=== PATIENT | male | born 1950 | race African-American/Black ===

== ENCOUNTER 2016-07-04 06:59 | Inpatient (IN) | payer MEDICARE, MEDICAID ==
[~2016-07-04] VITALS: Ht 170.2 cm; Wt 81.7 kg
[~2016-07-04 06:59] MED LIST: AMLO2.5T45 PO; ASPI-1035 PO; ATOR10TA69 PO; FURO20TA4 PO; INSU3INS6 SUBCUT; LOSA25TA12 PO; METO25TA6 PO; NORT25CA PO
[2016-07-04 07:47] LABS: BASOPHILS % 0.6 % (0.0-2.0); EOSINOPHILS % 0.7 % (0.0-5.0); HEMATOCRIT. 32.4 % (42.0-52.0); HEMOGLOBIN. 10.7 g/dL (14.0-18.0); LYMPHOCYTES % 15.8 % (20.0-50.0); MEAN CORPUSCULAR HEMOGLOBIN 27.5 pg (28.0-32.0); MEAN CORPUSCULAR VOLUME 83.2 fL (80.0-94.0); MEAN PLATELET VOLUME 8.9 fl (7.4-10.4); MONOCYTES % 6.3 % (2.0-8.0); NEUTROPHILS % 76.6 % (40.0-76.0); PLATELET 153 x1000/uL (130-400); RED CELL DISTRIBUTION WIDTH 14.6 % (11.6-14.6); WHITE BLOOD COUNT 7.4 x1000/uL (4.5-11.0)
[2016-07-04 07:56] LABS: INR 1.2; PARTIAL THROMBOPLASTIN TIME 28.9 sec (24.0-34.0)
[2016-07-04 07:58] LABS: ALBUMIN 3.7 g/dL (3.4-5.0); ANION GAP 14; CALCIUM 9.1 mg/dL (8.5-10.1); CARBON DIOXIDE 24 mEq/L (21-32); CHLORIDE 107 mEq/L (98-107); INDEX HEMOLYSI 2 (1-3); INDEX ICTERIC 1 (1-4); INDEX LIPEMIC 1 (1-3); LIPASE 98 IU/L (73-393); UREA NITROGEN BLOOD 35 mg/dL (7-21)
[2016-07-04 07:59] LABS: ALANINE AMINOTRANSFERASE 17 IU/L (13-61); eGFR > 60 mL/min (>60)
[2016-07-04] MEDS ORDERED: FUROSEMIDE 20MG/2ML VIAL IVP ONE (08:00)
[2016-07-04] MEDS ORDERED: MORPHINE SULFATE 4 MG/ML CPJ (NOT FOR IM USE) IV ONE (08:00)
[2016-07-04 08:04] LABS: TROPONIN I 0.11 ng/mL (0.00-0.04)
[2016-07-04] MEDS ORDERED: ACETAMINOPHEN 325MG TABLET PO PRN (13:00)
[2016-07-04] MEDS ORDERED: HYDROCODONE/ACETAMINOPHEN 5/325MG TABLET PO PRN (13:00)
[2016-07-04] MEDS ORDERED: ONDANSETRON HCL 4MG/2ML VIAL IV PRN (13:00)
[2016-07-04] MEDS ORDERED: DIPHENHYDRAMINE 50MG/ML VIAL IV PRN (13:00)
[2016-07-04] MEDS ORDERED: DEXTROSE 50% WATER 50ML SYRINGE IV PRN (13:00)
[2016-07-04] MEDS ORDERED: CLONIDINE 0.1MG TABLET PO PRN (13:00)
[2016-07-04 15:05] VITALS: BP 136/111
[2016-07-04 16:00] VITALS: BP 134/90
[2016-07-04] MEDS: BLOOD SUGAR DIAGNOSTIC STRIP TEST SCH ×2 (18:08→21:47)
[2016-07-04] MEDS: METOPROLOL TARTRATE 25MG TABLET PO SCH (18:08)
[2016-07-04] MEDS: FUROSEMIDE 40MG/4ML VIAL IV SCH (18:08)
[2016-07-04] MEDS: ENOXAPARIN 40MG/0.4ML SYR SUBCUT SCH (18:08)
[2016-07-04] MEDS: INSULIN LISPRO 100 UNITS/ML SUBCUT SCH ×2 (18:09→21:00)
[2016-07-04] MEDS: MORPHINE SULFATE 2 MG/ML CPJ (NOT FOR IM USE) IV PRN (18:09)
[2016-07-04 20:00] VITALS: BP 122/88
[2016-07-04 21:10] LABS: CLARITY URINE CLEAR (CLEAR); COLOR URINE YELLOW (YELLOW); GLUCOSE URINE NEGATIVE (NEGATIVE); KETONES URINE NEGATIVE (NEGATIVE); LEUKOCYTE ESTERASE URINE NEGATIVE (NEGATIVE); NITRITE URINE NEGATIVE (NEGATIVE); OCCULT BLOOD URINE 1+ (NEGATIVE); PROTEIN URINE 2+ (NEGATIVE); SPECIFIC GRAVITY URINE 1.015 (1.005-1.030); UROBILINOGEN URINE 0.2 E.U./dL (0.2-1.0)
[2016-07-04 21:13] LABS: BACTERIA URINE NONE SEEN; CALCIUM PHOSPHATE CRYSTALS UR NONE SEEN /lpf; SQUAMOUS EPITHELIAL CELL URINE NONE SEEN /lpf (RARE/1+); WAXY CASTS URINE NONE SEEN /lpf; WBC URINE NONE SEEN /hpf (0-2); YEAST URINE NONE SEEN
[2016-07-05] VITALS: BP 124/86
[2016-07-05 04:00] VITALS: BP 118/79
[2016-07-05 05:59] LABS: CHLORIDE 107 mEq/L (98-107); INDEX HEMOLYSI 1 (1-3); INDEX ICTERIC 1 (1-4); INDEX LIPEMIC 1 (1-3)
[2016-07-05 06:08] LABS: ALANINE AMINOTRANSFERASE 14 IU/L (13-61); ALBUMIN 3.2 g/dL (3.4-5.0); ANION GAP 15; CALCIUM 8.8 mg/dL (8.5-10.1); CARBON DIOXIDE 21 mEq/L (21-32); HDL CHOLESTEROL 60 mg/dL (40-59); LDL CHOLESTEROL 60 mg/dL (5-100); TRIGLYCERIDE 65 mg/dL (0-150); UREA NITROGEN BLOOD 40 mg/dL (7-21); eGFR > 60 mL/min (>60)
[2016-07-05] MEDS: INSULIN LISPRO 100 UNITS/ML SUBCUT SCH ×4 (06:12→22:05)
[2016-07-05] MEDS: BLOOD SUGAR DIAGNOSTIC STRIP TEST SCH ×4 (06:12→21:54)
[2016-07-05 06:14] LABS: BASOPHILS % 0.7 % (0.0-2.0); EOSINOPHILS % 1.4 % (0.0-5.0); HEMATOCRIT. 31.5 % (42.0-52.0); HEMOGLOBIN. 9.9 g/dL (14.0-18.0); LYMPHOCYTES % 29.7 % (20.0-50.0); MEAN CORPUSCULAR HEMOGLOBIN 26.5 pg (28.0-32.0); MEAN CORPUSCULAR HGB CONC 31.4 g/dL (31.0-37.0); MEAN CORPUSCULAR VOLUME 84.5 fL (80.0-94.0); MEAN PLATELET VOLUME 9.1 fl (7.4-10.4); MONOCYTES % 8.6 % (2.0-8.0); NEUTROPHILS % 59.6 % (40.0-76.0); PLATELET 132 x1000/uL (130-400); RED BLOOD CELL COUNT 3.73 mill/uL (4.7-6.1); WHITE BLOOD COUNT 5.4 x1000/uL (4.5-11.0)
[2016-07-05] MEDS: FUROSEMIDE 40MG/4ML VIAL IV SCH ×2 (06:34→17:55)
[2016-07-05 08:08] VITALS: BP 140/90
[2016-07-05] MEDS: METOPROLOL TARTRATE 25MG TABLET PO SCH ×2 (10:24→17:55)
[2016-07-05] MEDS: NORTRIPTYLINE HCL 25MG CAPSULE PO SCH (10:25)
[2016-07-05] MEDS: AMLODIPINE 2.5MG TABLET PO SCH (10:25)
[2016-07-05] MEDS: LOSARTAN POTASSIUM 25 MG TABLET PO SCH (10:26)
[2016-07-05] MEDS: ASPIRIN 81MG EC TABLET PO SCH (10:26)
[2016-07-05] MEDS: MORPHINE SULFATE 2 MG/ML CPJ (NOT FOR IM USE) IV PRN (10:27)
[2016-07-05] MEDS: ATORVASTATIN CALCIUM 10MG TABLET PO SCH (10:30)
[2016-07-05] MEDS: IPRATROPIUM/ALBUTEROL 0.5-3(2.5)MG/3ML NEB INH PRN ×3 (11:45→21:52)
[2016-07-05 12:00] VITALS: BP 134/92
[2016-07-05 16:00] VITALS: BP 130/90
[2016-07-05] MEDS: ENOXAPARIN 40MG/0.4ML SYR SUBCUT SCH (17:56)
[2016-07-05 20:00] VITALS: BP 129/87
[2016-07-05] MEDS: SILVER SULFADIAZINE 1% CREAM 25GM TOP SCH (21:55)
[2016-07-06] VITALS: BP 118/74
[2016-07-06] MEDS: MORPHINE SULFATE 2 MG/ML CPJ (NOT FOR IM USE) IV PRN (03:17)
[2016-07-06 04:00] VITALS: BP 127/90
[2016-07-06] MEDS: BLOOD SUGAR DIAGNOSTIC STRIP TEST SCH ×4 (06:24→21:32)
[2016-07-06] MEDS: INSULIN LISPRO 100 UNITS/ML SUBCUT SCH ×4 (06:24→21:00)
[2016-07-06] MEDS: FUROSEMIDE 40MG/4ML VIAL IV SCH ×2 (06:36→16:27)
[2016-07-06 08:00] VITALS: BP 125/82
[2016-07-06] MEDS: IPRATROPIUM/ALBUTEROL 0.5-3(2.5)MG/3ML NEB INH PRN ×2 (08:49→21:05)
[2016-07-06] MEDS: LOSARTAN POTASSIUM 25 MG TABLET PO SCH (09:00)
[2016-07-06] MEDS: NORTRIPTYLINE HCL 25MG CAPSULE PO SCH (09:03)
[2016-07-06] MEDS: ASPIRIN 81MG EC TABLET PO SCH (09:03)
[2016-07-06] MEDS: SILVER SULFADIAZINE 1% CREAM 25GM TOP SCH ×2 (09:04→21:32)
[2016-07-06] MEDS: METOPROLOL TARTRATE 25MG TABLET PO SCH ×2 (09:04→16:28)
[2016-07-06] MEDS: AMLODIPINE 2.5MG TABLET PO SCH (09:04)
[2016-07-06] MEDS: ATORVASTATIN CALCIUM 10MG TABLET PO SCH (09:10)
[2016-07-06 12:00] VITALS: BP 125/86
[2016-07-06 16:00] VITALS: BP 126/85
[2016-07-06] MEDS: ENOXAPARIN 40MG/0.4ML SYR SUBCUT SCH (16:27)
[2016-07-06 20:00] VITALS: BP_SYST 125; BP_SYST 155; BP_DIAS 85; BP_DIAS 89
[2016-07-07] VITALS: BP 119/78
[2016-07-07] MEDS: IPRATROPIUM/ALBUTEROL 0.5-3(2.5)MG/3ML NEB INH PRN ×3 (00:59→09:15)
[2016-07-07 04:00] VITALS: BP 138/88
[2016-07-07 05:20] LABS: BASOPHILS % 0.5 % (0.0-2.0); EOSINOPHILS % 1.4 % (0.0-5.0); HEMATOCRIT. 31.2 % (42.0-52.0); HEMOGLOBIN. 10.1 g/dL (14.0-18.0); LYMPHOCYTES % 18.4 % (20.0-50.0); MEAN CORPUSCULAR HEMOGLOBIN 26.7 pg (28.0-32.0); MEAN CORPUSCULAR HGB CONC 32.3 g/dL (31.0-37.0); MEAN CORPUSCULAR VOLUME 82.7 fL (80.0-94.0); MEAN PLATELET VOLUME 8.9 fl (7.4-10.4); MONOCYTES % 8.2 % (2.0-8.0); NEUTROPHILS % 71.5 % (40.0-76.0); PLATELET 135 x1000/uL (130-400); RED BLOOD CELL COUNT 3.77 mill/uL (4.7-6.1); RED CELL DISTRIBUTION WIDTH 14.7 % (11.6-14.6); WHITE BLOOD COUNT 5.6 x1000/uL (4.5-11.0)
[2016-07-07] MEDS: BLOOD SUGAR DIAGNOSTIC STRIP TEST SCH ×4 (05:53→20:32)
[2016-07-07 06:19] LABS: ALANINE AMINOTRANSFERASE 11 IU/L (13-61); ANION GAP 13; CALCIUM 8.8 mg/dL (8.5-10.1); CARBON DIOXIDE 26 mEq/L (21-32); CHLORIDE 104 mEq/L (98-107); INDEX HEMOLYSI 1 (1-3); INDEX ICTERIC 1 (1-4); INDEX LIPEMIC 1 (1-3); UREA NITROGEN BLOOD 37 mg/dL (7-21); eGFR > 60 mL/min (>60)
[2016-07-07] MEDS: FUROSEMIDE 40MG/4ML VIAL IV SCH ×2 (07:44→17:59)
[2016-07-07] MEDS: INSULIN LISPRO 100 UNITS/ML SUBCUT SCH ×4 (07:44→20:43)
[2016-07-07 07:45] VITALS: BP 117/67
[2016-07-07] MEDS: LOSARTAN POTASSIUM 25 MG TABLET PO SCH (09:53)
[2016-07-07] MEDS: AMLODIPINE 2.5MG TABLET PO SCH (09:54)
[2016-07-07] MEDS: SILVER SULFADIAZINE 1% CREAM 25GM TOP SCH ×2 (09:54→20:42)
[2016-07-07] MEDS: NORTRIPTYLINE HCL 25MG CAPSULE PO SCH (09:54)
[2016-07-07] MEDS: METOPROLOL TARTRATE 25MG TABLET PO SCH ×2 (09:54→17:59)
[2016-07-07] MEDS: ASPIRIN 81MG EC TABLET PO SCH (09:54)
[2016-07-07] MEDS: ATORVASTATIN CALCIUM 10MG TABLET PO SCH (09:54)
[2016-07-07 12:00] VITALS: BP 136/89
[2016-07-07 16:00] VITALS: BP 142/91
[2016-07-07] MEDS: ENOXAPARIN 40MG/0.4ML SYR SUBCUT SCH (17:59)
[2016-07-07 20:00] VITALS: BP 126/87
[2016-07-08] VITALS: BP 128/83
[2016-07-08 04:00] VITALS: BP 126/81
[2016-07-08 06:04] LABS: BASOPHILS % 0.6 % (0.0-2.0); HEMATOCRIT. 32.3 % (42.0-52.0); HEMOGLOBIN. 10.5 g/dL (14.0-18.0); LYMPHOCYTES % 24.6 % (20.0-50.0); MEAN CORPUSCULAR HEMOGLOBIN 26.9 pg (28.0-32.0); MEAN CORPUSCULAR HGB CONC 32.4 g/dL (31.0-37.0); MEAN PLATELET VOLUME 8.7 fl (7.4-10.4); MONOCYTES % 9.5 % (2.0-8.0); NEUTROPHILS % 63.3 % (40.0-76.0); PLATELET 147 x1000/uL (130-400); RED BLOOD CELL COUNT 3.89 mill/uL (4.7-6.1); RED CELL DISTRIBUTION WIDTH 14.7 % (11.6-14.6); WHITE BLOOD COUNT 5.7 x1000/uL (4.5-11.0)
[2016-07-08] MEDS: FUROSEMIDE 40MG/4ML VIAL IV SCH ×2 (06:18→16:50)
[2016-07-08] MEDS: MORPHINE SULFATE 2 MG/ML CPJ (NOT FOR IM USE) IV PRN (06:24)
[2016-07-08 06:47] LABS: CHLORIDE 100 mEq/L (98-107); INDEX HEMOLYSI 1 (1-3); INDEX ICTERIC 1 (1-4); INDEX LIPEMIC 1 (1-3)
[2016-07-08 06:56] LABS: ALANINE AMINOTRANSFERASE 13 IU/L (13-61); ALBUMIN 3.2 g/dL (3.4-5.0); ANION GAP 13; CARBON DIOXIDE 29 mEq/L (21-32); UREA NITROGEN BLOOD 26 mg/dL (7-21); eGFR > 60 mL/min (>60)
[2016-07-08] MEDS: BLOOD SUGAR DIAGNOSTIC STRIP TEST SCH ×4 (07:34→21:00)
[2016-07-08] MEDS: INSULIN LISPRO 100 UNITS/ML SUBCUT SCH ×4 (07:34→21:00)
[2016-07-08 08:00] VITALS: BP 137/92
[2016-07-08] MEDS ORDERED: LIDOCAINE HCL/PF 1% 2ML VIAL ONE (09:00)
[2016-07-08] MEDS: ASPIRIN 81MG EC TABLET PO SCH (09:28)
[2016-07-08] MEDS: LOSARTAN POTASSIUM 25 MG TABLET PO SCH (09:28)
[2016-07-08] MEDS: ATORVASTATIN CALCIUM 10MG TABLET PO SCH (09:28)
[2016-07-08] MEDS: AMLODIPINE 2.5MG TABLET PO SCH (09:28)
[2016-07-08] MEDS: METOPROLOL TARTRATE 25MG TABLET PO SCH ×2 (09:28→16:50)
[2016-07-08] MEDS: NORTRIPTYLINE HCL 25MG CAPSULE PO SCH (09:28)
[2016-07-08] MEDS: SILVER SULFADIAZINE 1% CREAM 25GM TOP SCH ×2 (09:29→21:56)
[2016-07-08 09:45] LABS: BG BASE EXCESS 0.2 mmol/L (-2.0-2.0); BG CARBOXYHEMOGLOBIN 0.5 % (0.5-1.5); BG DEOXYHEMOGLOBIN 4.8 % (0.0-5.0); BG FRACTION INSPIRED OXYGEN 21; BG HCO3 ACT 23.5 mmol/L (22.0-26.0); BG METHEMOGLOBIN 0.2 % (0.0-1.5); BG OXYGEN SATURATION 95.2 % (92.0-98.5); BG OXYHEMOGLOBIN 94.5 % (94.0-97.0); BG PO2 74.1 mmHg (75.0-100.0); BG SAMPLE SITE RIGHT BRACHIAL; BG TOTAL HEMOGLOBIN 10.7 g/dL (12.0-18.0); BG VENT MODE ROOM AIR
[2016-07-08 12:00] VITALS: BP 125/82
[2016-07-08] MEDS: IPRATROPIUM/ALBUTEROL 0.5-3(2.5)MG/3ML NEB INH PRN ×2 (13:12→20:43)
[2016-07-08] MEDS: LEVOFLOXACIN 500MG PREMIX 100 ML IV SCH (13:35)
[2016-07-08] MEDS: ENOXAPARIN 40MG/0.4ML SYR SUBCUT SCH (15:07)
[2016-07-08 16:00] VITALS: BP 137/92
[2016-07-08 20:00] VITALS: BP 124/80
[2016-07-09] VITALS: BP 121/71
[2016-07-09 04:00] VITALS: BP 127/82
[2016-07-09] MEDS: FUROSEMIDE 40MG/4ML VIAL IV SCH (07:11)
[2016-07-09] MEDS: BLOOD SUGAR DIAGNOSTIC STRIP TEST SCH ×2 (07:32→12:12)
[2016-07-09] MEDS: INSULIN LISPRO 100 UNITS/ML SUBCUT SCH ×2 (07:32→13:09)
[2016-07-09 08:00] VITALS: BP 134/95
[2016-07-09] MEDS: ATORVASTATIN CALCIUM 10MG TABLET PO SCH (09:02)
[2016-07-09] MEDS: SILVER SULFADIAZINE 1% CREAM 25GM TOP SCH (09:03)
[2016-07-09] MEDS: NORTRIPTYLINE HCL 25MG CAPSULE PO SCH (09:03)
[2016-07-09] MEDS: AMLODIPINE 2.5MG TABLET PO SCH (09:03)
[2016-07-09] MEDS: LOSARTAN POTASSIUM 25 MG TABLET PO SCH (09:03)
[2016-07-09] MEDS: ASPIRIN 81MG EC TABLET PO SCH (09:03)
[2016-07-09] MEDS: METOPROLOL TARTRATE 25MG TABLET PO SCH (09:03)
[2016-07-09] MEDS: MORPHINE SULFATE 2 MG/ML CPJ (NOT FOR IM USE) IV PRN (10:15)
[2016-07-09 12:00] VITALS: BP 122/85
[2016-07-09] MEDS: LEVOFLOXACIN 500MG PREMIX 100 ML IV SCH (13:57)
[2016-07-09 14:49] VITALS: BP 122/85
[2016-07-10] MEDS ORDERED: LEVOFLOXACIN 500MG TABLET PO SCH (11:00)
== END 2016-07-09 15:50 | disposition home or self-care (01) | DRG 291 ==
LOC: ER 07:18 → 7WST 11:48
PROVIDERS: ADMIT Internal Medicine; ATTEND Internal Medicine
PROC: 5A09457 Assistance with Respiratory Ventilation, 24-96 Consecutive Hours, Continuous Positive Airway Pressure (ICD-10-PCS; principal; 2016-07-06)
DX: I11.0 Hypertensive heart disease with heart failure (principal); J96.00 Acute respiratory failure, unspecified whether with hypoxia or hypercapnia; J18.9 Pneumonia, unspecified organism; J44.0 Chronic obstructive pulmonary disease with (acute) lower respiratory infection; I24.9 Acute ischemic heart disease, unspecified; I42.9 Cardiomyopathy, unspecified; D64.9 Anemia, unspecified; E78.5 Hyperlipidemia, unspecified; J44.9 Chronic obstructive pulmonary disease, unspecified; I50.43 Acute on chronic combined systolic (congestive) and diastolic (congestive) heart failure; E78.00 Pure hypercholesterolemia, unspecified; E11.9 Type 2 diabetes mellitus without complications; N28.9 Disorder of kidney and ureter, unspecified; Z95.810 Presence of automatic (implantable) cardiac defibrillator; Z79.82 Long term (current) use of aspirin; Z79.899 Other long term (current) drug therapy; Z79.4 Long term (current) use of insulin
CPT/HCPCS: 36415; 36600; 71010; 80053; 80061; 81001; 82375; 82805; 82962; 83036; 83690; 83880; 84484; 85025; 85610; 85730; 87040; 87086; 93005; 93306; 93970; 94640; 94660; 94664; 96374; 96375; 99285; J1650; J1815; J1940; J1956; J2270; J3490; J7050; J7620

== ENCOUNTER 2016-09-01 13:02 | Inpatient (IN) | payer MEDICARE, MEDICAID ==
[~2016-09-01] VITALS: Ht 190.5 cm; Wt 82.1 kg
[~2016-09-01 13:02] MED LIST changes: -ASPI-1035 PO; +ASPI-1159 PO
[2016-09-01 14:15] LABS: BASOPHILS % 0.9 % (0.0-2.0); EOSINOPHILS % 2.7 % (0.0-5.0); HEMATOCRIT. 27.2 % (42.0-52.0); LYMPHOCYTES % 26.6 % (20.0-50.0); MEAN CORPUSCULAR HEMOGLOBIN 26.9 pg (28.0-32.0); MEAN CORPUSCULAR VOLUME 81.7 fL (80.0-94.0); MEAN PLATELET VOLUME 8.3 fl (7.4-10.4); MONOCYTES % 6.2 % (2.0-8.0); NEUTROPHILS % 63.6 % (40.0-76.0); PLATELET 87 x1000/uL (130-400); RED BLOOD CELL COUNT 3.33 mill/uL (4.7-6.1); RED CELL DISTRIBUTION WIDTH 17.3 % (11.6-14.6)
[2016-09-01 14:22] LABS: INR 1.2; PROTHROMBIN TIME 12.4 sec
[2016-09-01 14:31] LABS: CARBON DIOXIDE 26 mEq/L (21-32); CHLORIDE 107 mEq/L (98-107); TROPONIN I 0.12 ng/mL (0.00-0.04)
[2016-09-01] MEDS ORDERED: ASPIRIN 81MG TABLET PO STA (14:50)
[2016-09-01] MEDS ORDERED: FUROSEMIDE 40MG/4ML VIAL IVP ONE (15:00)
[2016-09-01] MEDS ORDERED: PIPERACILLIN/TAZOBACTAM 3.375GM/50ML PREMIX IV ONE (16:15)
[2016-09-01] MEDS ORDERED: PIPERACILLIN/TAZ 3.375G PREMIX 50 ML IV NR (16:30)
[2016-09-01 17:16] LABS: CLARITY URINE CLEAR (CLEAR); COLOR URINE YELLOW (YELLOW); GLUCOSE URINE NEGATIVE (NEGATIVE); KETONES URINE NEGATIVE (NEGATIVE); LEUKOCYTE ESTERASE URINE NEGATIVE (NEGATIVE); NITRITE URINE NEGATIVE (NEGATIVE); OCCULT BLOOD URINE 1+ (NEGATIVE); PROTEIN URINE 1+ (NEGATIVE); SPECIFIC GRAVITY URINE 1.014 (1.005-1.030)
[2016-09-01 22:10] VITALS: BP 126/86
[2016-09-01] MEDS ORDERED: DEXTROSE 50% WATER 50ML SYRINGE IV PRN (23:00)
[2016-09-02] VITALS: BP 134/91
[2016-09-02 04:00] VITALS: BP 126/88
[2016-09-02] MEDS ORDERED: HYDROCODONE/ACETAMINOPHEN 5/325MG TABLET PO PRN (04:45)
[2016-09-02] MEDS ORDERED: IPRATROPIUM/ALBUTEROL 0.5-3(2.5)MG/3ML NEB INH PRN (04:45)
[2016-09-02] MEDS ORDERED: CLONIDINE 0.1MG TABLET PO PRN (04:45)
[2016-09-02] MEDS ORDERED: ONDANSETRON HCL 4MG/2ML VIAL IV PRN (04:45)
[2016-09-02] MEDS ORDERED: MAGNESIUM/ALUMINUM HYDROXIDE/SIMETHICONE 30ML UDC PO PRN (04:45)
[2016-09-02] MEDS ORDERED: GUAIFENESIN 200MG/10ML SUGAR FREE UDC PO PRN (04:45)
[2016-09-02] MEDS ORDERED: ACETAMINOPHEN 325MG TABLET PO PRN (04:45)
[2016-09-02] MEDS: IPRATROPIUM/ALBUTEROL 0.5-3(2.5)MG/3ML NEB HHN SCH ×5 (05:16→20:00)
[2016-09-02 06:28] LABS: BASOPHILS % 0.8 % (0.0-2.0); EOSINOPHILS % 3.4 % (0.0-5.0); HEMATOCRIT. 28.4 % (42.0-52.0); HEMOGLOBIN. 9.1 g/dL (14.0-18.0); LYMPHOCYTES % 30.4 % (20.0-50.0); MEAN CORPUSCULAR HEMOGLOBIN 26.3 pg (28.0-32.0); MEAN CORPUSCULAR VOLUME 82.1 fL (80.0-94.0); MEAN PLATELET VOLUME 8.9 fl (7.4-10.4); MONOCYTES % 6.4 % (2.0-8.0); PLATELET 91 x1000/uL (130-400); RED BLOOD CELL COUNT 3.47 mill/uL (4.7-6.1); RED CELL DISTRIBUTION WIDTH 17.5 % (11.6-14.6)
[2016-09-02] MEDS: INSULIN LISPRO 100 UNITS/ML SUBCUT SCH ×4 (06:43→20:29)
[2016-09-02 07:10] LABS: CARBON DIOXIDE 25 mEq/L (21-32); CHLORIDE 106 mEq/L (98-107); CREATINE KINASE 203 IU/L (39-308); CREATINE KINASE MB FRACTION 3.2 ng/mL (0.5-3.6); TROPONIN I 0.11 ng/mL (0.00-0.04)
[2016-09-02 08:00] VITALS: BP 138/96
[2016-09-02] MEDS: BLOOD SUGAR DIAGNOSTIC STRIP TEST SCH ×4 (08:15→20:23)
[2016-09-02] MEDS: FUROSEMIDE 40MG/4ML VIAL IV SCH ×2 (08:16→20:23)
[2016-09-02] MEDS: AMLODIPINE 5MG TABLET PO SCH (08:17)
[2016-09-02] MEDS: LISINOPRIL 20MG TABLET PO SCH (08:17)
[2016-09-02] MEDS: CARVEDILOL 3.125 MG TABLET PO SCH ×2 (08:18→16:53)
[2016-09-02] MEDS: ATORVASTATIN CALCIUM 20MG TABLET PO SCH (08:19)
[2016-09-02] MEDS: ASPIRIN 81MG EC TABLET PO SCH ×2 (08:19→09:00)
[2016-09-02] MEDS ORDERED: ENOXAPARIN 40MG/0.4ML SYR SUBCUT SCH ×2 (09:00)
[2016-09-02] MEDS ORDERED: FUROSEMIDE 40MG/4ML VIAL IV SCH (09:00)
[2016-09-02 10:15] LABS: HEPATITIS B SURFACE ANTIGEN NEGATIVE
[2016-09-02 10:45] LABS: HEPATITIS A AB IGM NEGATIVE (NEGATIVE)
[2016-09-02] MEDS: HYDROCODONE/ACETAMINOPHEN 10/325MG TABLET PO PRN (10:48)
[2016-09-02 11:52] VITALS: BP 134/96
[2016-09-02 12:08] LABS: HEPATITIS B CORE AB IGM REACTIVE
[2016-09-02 12:16] LABS: *AMPHETAMINES SCREEN URINE NEGATIVE (NEGATIVE); *BARBITURATES SCREEN URINE NEGATIVE (NEGATIVE); *BENZODIAZEPINES SCREEN URINE NEGATIVE (NEGATIVE); *COCAINE SCREEN URINE NEGATIVE (NEGATIVE); CANNABINOID URINE SCREEN NEGATIVE (NEGATIVE); METHADONE URINE SCREEN NEGATIVE (NEGATIVE); OPIATES URINE SCREEN NEGATIVE (NEGATIVE); PHENCYCLIDINE URINE SCREEN NEGATIVE (NEGATIVE)
[2016-09-02] MEDS ORDERED: SODIUM BICARBONATE 4% (2.4MEQ) 5ML VIAL IV ONE (14:46)
[2016-09-02 16:15] LABS: CREATINE KINASE MB FRACTION 3.1 ng/mL (0.5-3.6); TROPONIN I 0.11 ng/mL (0.00-0.04)
[2016-09-02 16:21] VITALS: BP 112/74
[2016-09-02 20:00] VITALS: BP 100/66
[2016-09-02] MEDS: NORTRIPTYLINE HCL 25MG CAPSULE PO SCH (20:23)
[2016-09-03] VITALS: BP 116/75
[2016-09-03] MEDS: IPRATROPIUM/ALBUTEROL 0.5-3(2.5)MG/3ML NEB HHN SCH ×6 (00:44→20:16)
[2016-09-03 04:00] VITALS: BP 132/93
[2016-09-03] MEDS: BLOOD SUGAR DIAGNOSTIC STRIP TEST SCH ×4 (06:38→21:11)
[2016-09-03 07:42] LABS: BASOPHILS % 0.5 % (0.0-2.0); EOSINOPHILS % 1.5 % (0.0-5.0); HEMATOCRIT. 30.8 % (42.0-52.0); HEMOGLOBIN. 10.1 g/dL (14.0-18.0); LYMPHOCYTES % 15.3 % (20.0-50.0); MEAN CORPUSCULAR HEMOGLOBIN 26.7 pg (28.0-32.0); MEAN CORPUSCULAR VOLUME 81.6 fL (80.0-94.0); MEAN PLATELET VOLUME 8.8 fl (7.4-10.4); MONOCYTES % 5.9 % (2.0-8.0); NEUTROPHILS % 76.8 % (40.0-76.0); PLATELET 98 x1000/uL (130-400); RED BLOOD CELL COUNT 3.77 mill/uL (4.7-6.1); RED CELL DISTRIBUTION WIDTH 17.3 % (11.6-14.6)
[2016-09-03] MEDS: INSULIN LISPRO 100 UNITS/ML SUBCUT SCH ×4 (07:50→21:00)
[2016-09-03 07:55] LABS: CARBON DIOXIDE 27 mEq/L (21-32); CHLORIDE 103 mEq/L (98-107); T4 FREE 1.51 ng/dL (0.76-1.46)
[2016-09-03 08:04] VITALS: BP 135/92
[2016-09-03] MEDS: FUROSEMIDE 40MG/4ML VIAL IV SCH ×2 (08:46→21:13)
[2016-09-03] MEDS: LISINOPRIL 20MG TABLET PO SCH (08:47)
[2016-09-03] MEDS: AMLODIPINE 5MG TABLET PO SCH (08:47)
[2016-09-03] MEDS: ATORVASTATIN CALCIUM 20MG TABLET PO SCH (08:47)
[2016-09-03] MEDS: CARVEDILOL 3.125 MG TABLET PO SCH ×2 (08:47→16:17)
[2016-09-03] MEDS: ASPIRIN 81MG EC TABLET PO SCH (08:48)
[2016-09-03] MEDS: HYDROCODONE/ACETAMINOPHEN 10/325MG TABLET PO PRN ×2 (11:27→16:18)
[2016-09-03 12:00] VITALS: BP 126/88
[2016-09-03] MEDS ORDERED: MAGNESIUM 2 G PREMIX 50 ML IV NR (12:30)
[2016-09-03] MEDS ORDERED: MAGNESIUM 1 G PREMIX 100 ML IV ONE (15:30)
[2016-09-03 15:54] VITALS: BP 115/76
[2016-09-03] MEDS: DOCUSATE SODIUM 100MG CAPSULE PO PRN (16:29)
[2016-09-03 20:00] VITALS: BP 115/71
[2016-09-03] MEDS: NORTRIPTYLINE HCL 25MG CAPSULE PO SCH (21:13)
[2016-09-04] VITALS: BP 112/75
[2016-09-04] MEDS: IPRATROPIUM/ALBUTEROL 0.5-3(2.5)MG/3ML NEB HHN SCH ×7 (00:08→20:25)
[2016-09-04] MEDS: HYDROCODONE/ACETAMINOPHEN 10/325MG TABLET PO PRN ×5 (00:27→17:16)
[2016-09-04 04:00] VITALS: BP 108/66
[2016-09-04] MEDS: DOCUSATE SODIUM 100MG CAPSULE PO PRN ×2 (05:06→17:15)
[2016-09-04 06:23] LABS: BASOPHILS % 0.8 % (0.0-2.0); EOSINOPHILS % 2.2 % (0.0-5.0); HEMATOCRIT. 30.1 % (42.0-52.0); HEMOGLOBIN. 9.8 g/dL (14.0-18.0); LYMPHOCYTES % 18.2 % (20.0-50.0); MEAN CORPUSCULAR VOLUME 82.3 fL (80.0-94.0); MEAN PLATELET VOLUME 8.8 fl (7.4-10.4); MONOCYTES % 7.6 % (2.0-8.0); NEUTROPHILS % 71.2 % (40.0-76.0); PLATELET 98 x1000/uL (130-400); RED BLOOD CELL COUNT 3.65 mill/uL (4.7-6.1); RED CELL DISTRIBUTION WIDTH 17.4 % (11.6-14.6)
[2016-09-04] MEDS: BLOOD SUGAR DIAGNOSTIC STRIP TEST SCH ×4 (07:41→21:00)
[2016-09-04] MEDS: INSULIN LISPRO 100 UNITS/ML SUBCUT SCH ×4 (07:50→20:59)
[2016-09-04 08:00] VITALS: BP 125/83
[2016-09-04 08:01] LABS: CARBON DIOXIDE 29 mEq/L (21-32); CHLORIDE 101 mEq/L (98-107)
[2016-09-04] MEDS: FUROSEMIDE 40MG/4ML VIAL IV SCH (08:58)
[2016-09-04] MEDS: CARVEDILOL 3.125 MG TABLET PO SCH ×2 (08:58→17:15)
[2016-09-04] MEDS: AMLODIPINE 5MG TABLET PO SCH (08:59)
[2016-09-04] MEDS: ASPIRIN 81MG EC TABLET PO SCH (08:59)
[2016-09-04] MEDS: ATORVASTATIN CALCIUM 20MG TABLET PO SCH (08:59)
[2016-09-04] MEDS: LISINOPRIL 20MG TABLET PO SCH (09:00)
[2016-09-04 12:00] VITALS: BP 111/78
[2016-09-04 16:00] VITALS: BP 131/89
[2016-09-04 20:00] VITALS: BP 113/78
[2016-09-04] MEDS: NORTRIPTYLINE HCL 25MG CAPSULE PO SCH (20:56)
[2016-09-05] VITALS: BP 110/72
[2016-09-05] MEDS: IPRATROPIUM/ALBUTEROL 0.5-3(2.5)MG/3ML NEB HHN SCH ×6 (00:01→21:10)
[2016-09-05 04:00] VITALS: BP 129/82
[2016-09-05 06:38] LABS: CARBON DIOXIDE 30 mEq/L (21-32); CHLORIDE 98 mEq/L (98-107)
[2016-09-05 06:46] LABS: BASOPHILS % 0.5 % (0.0-2.0); HEMATOCRIT. 30.3 % (42.0-52.0); HEMOGLOBIN. 9.9 g/dL (14.0-18.0); LYMPHOCYTES % 13.6 % (20.0-50.0); MEAN CORPUSCULAR HEMOGLOBIN 26.8 pg (28.0-32.0); MEAN CORPUSCULAR VOLUME 82.2 fL (80.0-94.0); MEAN PLATELET VOLUME 8.9 fl (7.4-10.4); MONOCYTES % 9.3 % (2.0-8.0); NEUTROPHILS % 72.6 % (40.0-76.0); PLATELET 91 x1000/uL (130-400); RED BLOOD CELL COUNT 3.69 mill/uL (4.7-6.1); RED CELL DISTRIBUTION WIDTH 17.1 % (11.6-14.6)
[2016-09-05] MEDS: BLOOD SUGAR DIAGNOSTIC STRIP TEST SCH ×4 (07:22→21:01)
[2016-09-05] MEDS: INSULIN LISPRO 100 UNITS/ML SUBCUT SCH ×4 (07:50→21:00)
[2016-09-05 08:15] VITALS: BP 134/88
[2016-09-05] MEDS: LISINOPRIL 20MG TABLET PO SCH (08:17)
[2016-09-05] MEDS: AMLODIPINE 5MG TABLET PO SCH (08:17)
[2016-09-05] MEDS: ASPIRIN 81MG EC TABLET PO SCH (08:18)
[2016-09-05] MEDS: CARVEDILOL 3.125 MG TABLET PO SCH ×2 (08:18→17:00)
[2016-09-05] MEDS: ATORVASTATIN CALCIUM 20MG TABLET PO SCH (08:18)
[2016-09-05] MEDS: HYDROCODONE/ACETAMINOPHEN 10/325MG TABLET PO PRN (08:34)
[2016-09-05] MEDS ORDERED: FUROSEMIDE 40MG/4ML VIAL IV SCH (09:00)
[2016-09-05 12:00] VITALS: BP 121/86
[2016-09-05] MEDS ORDERED: ASPIRIN 325MG EC TABLET PO SCH (14:45)
[2016-09-05] MEDS ORDERED: HYDROCODONE/ACETAMINOPHEN 10/325MG TABLET PO PRN (16:00)
[2016-09-05 16:12] VITALS: BP 106/70
[2016-09-05] MEDS: BUDESONIDE 0.5MG/2ML NEB HHN SCH (17:17)
[2016-09-05] MEDS: FUROSEMIDE 40MG/4ML VIAL IV SCH (17:26)
[2016-09-05 20:00] VITALS: BP 121/77
[2016-09-05] MEDS: NORTRIPTYLINE HCL 25MG CAPSULE PO SCH (21:00)
[2016-09-05] MEDS: ISOSORB DINIT/HYDRALAZINE HCL 20/37.5MG TABLET PO SCH (21:01)
[2016-09-05] MEDS: LOSARTAN POTASSIUM 25 MG TABLET PO SCH (21:06)
[2016-09-06] VITALS: BP 100/55
[2016-09-06] MEDS: IPRATROPIUM/ALBUTEROL 0.5-3(2.5)MG/3ML NEB HHN SCH ×5 (01:15→21:20)
[2016-09-06 04:00] VITALS: BP 114/76
[2016-09-06] MEDS: BUDESONIDE 0.5MG/2ML NEB HHN SCH ×2 (04:50→09:45)
[2016-09-06] MEDS: ISOSORB DINIT/HYDRALAZINE HCL 20/37.5MG TABLET PO SCH ×3 (05:36→21:07)
[2016-09-06 06:19] LABS: BASOPHILS % 0.4 % (0.0-2.0); EOSINOPHILS % 4.8 % (0.0-5.0); HEMATOCRIT. 26.8 % (42.0-52.0); HEMOGLOBIN. 8.7 g/dL (14.0-18.0); LYMPHOCYTES % 17.4 % (20.0-50.0); MEAN CORPUSCULAR HEMOGLOBIN 26.5 pg (28.0-32.0); MEAN CORPUSCULAR VOLUME 81.3 fL (80.0-94.0); MEAN PLATELET VOLUME 8.9 fl (7.4-10.4); MONOCYTES % 10.4 % (2.0-8.0); PLATELET 103 x1000/uL (130-400); RED BLOOD CELL COUNT 3.29 mill/uL (4.7-6.1); RED CELL DISTRIBUTION WIDTH 17.1 % (11.6-14.6)
[2016-09-06] MEDS: BLOOD SUGAR DIAGNOSTIC STRIP TEST SCH ×4 (06:56→20:55)
[2016-09-06 07:14] LABS: CARBON DIOXIDE 28 mEq/L (21-32); CHLORIDE 98 mEq/L (98-107)
[2016-09-06] MEDS: INSULIN LISPRO 100 UNITS/ML SUBCUT SCH ×4 (07:50→20:55)
[2016-09-06 08:00] VITALS: BP 117/83
[2016-09-06] MEDS: ASPIRIN 81MG TABLET PO SCH (08:47)
[2016-09-06] MEDS: SPIRONOLACTONE 25MG TABLET PO SCH (08:47)
[2016-09-06] MEDS: LOSARTAN POTASSIUM 25 MG TABLET PO SCH ×2 (08:47→21:07)
[2016-09-06] MEDS: CARVEDILOL 3.125 MG TABLET PO SCH ×2 (08:48→17:59)
[2016-09-06] MEDS: ATORVASTATIN CALCIUM 20MG TABLET PO SCH (08:48)
[2016-09-06] MEDS: AMLODIPINE 5MG TABLET PO SCH (08:48)
[2016-09-06] MEDS: FUROSEMIDE 40MG/4ML VIAL IV SCH ×2 (08:49→17:59)
[2016-09-06] MEDS: DOCUSATE SODIUM 100MG CAPSULE PO PRN (09:32)
[2016-09-06 12:00] VITALS: BP 113/69
[2016-09-06 16:00] VITALS: BP 112/71
[2016-09-06 20:00] VITALS: BP 117/79
[2016-09-06] MEDS: NORTRIPTYLINE HCL 25MG CAPSULE PO SCH (21:07)
[2016-09-07] MEDS: IPRATROPIUM/ALBUTEROL 0.5-3(2.5)MG/3ML NEB HHN SCH ×5 (00:27→16:00)
[2016-09-07] MEDS: BUDESONIDE 0.5MG/2ML NEB HHN SCH ×2 (00:27→11:22)
[2016-09-07] MEDS: ISOSORB DINIT/HYDRALAZINE HCL 20/37.5MG TABLET PO SCH ×2 (05:40→13:01)
[2016-09-07 06:38] LABS: BASOPHILS % 0.6 % (0.0-2.0); EOSINOPHILS % 5.3 % (0.0-5.0); HEMATOCRIT. 27.4 % (42.0-52.0); HEMOGLOBIN. 8.9 g/dL (14.0-18.0); MEAN CORPUSCULAR HEMOGLOBIN 26.4 pg (28.0-32.0); MEAN CORPUSCULAR VOLUME 81.4 fL (80.0-94.0); MEAN PLATELET VOLUME 8.5 fl (7.4-10.4); NEUTROPHILS % 67.1 % (40.0-76.0); PLATELET 118 x1000/uL (130-400); RED BLOOD CELL COUNT 3.36 mill/uL (4.7-6.1); RED CELL DISTRIBUTION WIDTH 16.7 % (11.6-14.6)
[2016-09-07 06:55] LABS: CARBON DIOXIDE 32 mEq/L (21-32); CHLORIDE 98 mEq/L (98-107)
[2016-09-07] MEDS: INSULIN LISPRO 100 UNITS/ML SUBCUT SCH ×2 (07:50→13:04)
[2016-09-07 08:00] VITALS: BP 128/82
[2016-09-07] MEDS: BLOOD SUGAR DIAGNOSTIC STRIP TEST SCH ×2 (08:06→13:01)
[2016-09-07] MEDS ORDERED: HYDROCODONE/ACETAMINOPHEN 5/325MG TABLET PO PRN (08:15)
[2016-09-07] MEDS ORDERED: HYDROCODONE/ACETAMINOPHEN 10/325MG TABLET PO PRN (08:15)
[2016-09-07] MEDS: ASPIRIN 81MG TABLET PO SCH (08:46)
[2016-09-07] MEDS: AMLODIPINE 5MG TABLET PO SCH (08:46)
[2016-09-07] MEDS: CARVEDILOL 3.125 MG TABLET PO SCH (08:46)
[2016-09-07] MEDS: ATORVASTATIN CALCIUM 20MG TABLET PO SCH (08:46)
[2016-09-07] MEDS: SPIRONOLACTONE 25MG TABLET PO SCH (08:47)
[2016-09-07] MEDS: FUROSEMIDE 40MG/4ML VIAL IV SCH (08:47)
[2016-09-07] MEDS: LOSARTAN POTASSIUM 25 MG TABLET PO SCH (08:47)
[2016-09-07 12:00] VITALS: BP 117/76
[2016-09-07 13:12] VITALS: BP 117/76
== END 2016-09-07 14:30 | disposition home or self-care (01) | DRG 291 ==
LOC: ER 14:47 → 6WST 15:10 → ENRESERV 20:03
PROVIDERS: ADMIT Internal Medicine; ATTEND Internal Medicine
PROC: 0W993ZZ Drainage of Right Pleural Cavity, Percutaneous Approach (ICD-10-PCS; principal; 2016-09-02)
DX: I11.0 Hypertensive heart disease with heart failure (principal); J96.00 Acute respiratory failure, unspecified whether with hypoxia or hypercapnia; J44.1 Chronic obstructive pulmonary disease with (acute) exacerbation; J93.9 Pneumothorax, unspecified; I69.351 Hemiplegia and hemiparesis following cerebral infarction affecting right dominant side; J98.11 Atelectasis; K76.6 Portal hypertension; I50.43 Acute on chronic combined systolic (congestive) and diastolic (congestive) heart failure; E11.621 Type 2 diabetes mellitus with foot ulcer; D72.819 Decreased white blood cell count, unspecified; E83.42 Hypomagnesemia; D69.59 Other secondary thrombocytopenia; D63.8 Anemia in other chronic diseases classified elsewhere; B19.20 Unspecified viral hepatitis C without hepatic coma; E11.51 Type 2 diabetes mellitus with diabetic peripheral angiopathy without gangrene; I25.5 Ischemic cardiomyopathy; I27.2 Other secondary pulmonary hypertension; I25.10 Atherosclerotic heart disease of native coronary artery without angina pectoris; K74.60 Unspecified cirrhosis of liver; L97.519 Non-pressure chronic ulcer of other part of right foot with unspecified severity; L97.529 Non-pressure chronic ulcer of other part of left foot with unspecified severity; Z95.810 Presence of automatic (implantable) cardiac defibrillator; Z99.81 Dependence on supplemental oxygen; Z79.899 Other long term (current) drug therapy
CPT/HCPCS: 32555; 36415; 71010; 73630; 74176; 76700; 80048; 80053; 80305; 81001; 82550; 82553; 82962; 83605; 83690; 83735; 83880; 83986; 84157; 84439; 84443; 84484; 85025; 85610; 86705; 86709; 86803; 87040; 87070; 87205; 87340; 88108; 88312; 89050; 93005; 93306; 93923; 93970; 94640; 96365; 96375; 99285; A6261; J1815; J1940; J2543; J3475; J3490; J7040; J7050; J7620; J7626

== ENCOUNTER 2016-09-14 11:31 | Inpatient (IN) | payer MEDICARE, MEDICAID ==
[~2016-09-14] VITALS: Ht 190.5 cm; Wt 72.6 kg
[~2016-09-14 11:31] MED LIST changes: -FURO20TA4 PO
[2016-09-14] MEDS ORDERED: ASPIRIN 81MG TABLET PO STA (13:13)
[2016-09-14] MEDS ORDERED: ONDANSETRON HCL 4MG/2ML VIAL IV STA (13:13)
[2016-09-14] MEDS ORDERED: MORPHINE SULFATE 4 MG/ML CPJ (NOT FOR IM USE) IV STA (13:13)
[2016-09-14 14:19] LABS: BASOPHILS % 0.8 % (0.0-2.0); EOSINOPHILS % 1.6 % (0.0-5.0); HEMATOCRIT. 30.8 % (42.0-52.0); HEMOGLOBIN. 10.2 g/dL (14.0-18.0); LYMPHOCYTES % 18.6 % (20.0-50.0); MEAN CORPUSCULAR HEMOGLOBIN 26.6 pg (28.0-32.0); MEAN CORPUSCULAR VOLUME 80.5 fL (80.0-94.0); MEAN PLATELET VOLUME 8.1 fl (7.4-10.4); MONOCYTES % 6.3 % (2.0-8.0); NEUTROPHILS % 72.7 % (40.0-76.0); PLATELET 180 x1000/uL (130-400); RED BLOOD CELL COUNT 3.83 mill/uL (4.7-6.1); RED CELL DISTRIBUTION WIDTH 16.3 % (11.6-14.6)
[2016-09-14 14:28] LABS: INR 1.2; PARTIAL THROMBOPLASTIN TIME 31.5 sec (24.0-34.0); PROTHROMBIN TIME 12.6 sec
[2016-09-14 14:36] LABS: CARBON DIOXIDE 28 mEq/L (21-32); CHLORIDE 104 mEq/L (98-107); ETHANOL BLOOD < 10 mg/dL; TROPONIN I 0.14 ng/mL (0.00-0.04)
[2016-09-14 15:29] LABS: *AMPHETAMINES SCREEN URINE NEGATIVE (NEGATIVE); *BARBITURATES SCREEN URINE NEGATIVE (NEGATIVE); *BENZODIAZEPINES SCREEN URINE NEGATIVE (NEGATIVE); *COCAINE SCREEN URINE NEGATIVE (NEGATIVE); CANNABINOID URINE SCREEN NEGATIVE (NEGATIVE); METHADONE URINE SCREEN NEGATIVE (NEGATIVE); OPIATES URINE SCREEN PRESUMTIVE POSITIVE (NEGATIVE); PHENCYCLIDINE URINE SCREEN NEGATIVE (NEGATIVE)
[2016-09-14] MEDS ORDERED: IPRATROPIUM/ALBUTEROL 0.5-3(2.5)MG/3ML NEB INH PRN (15:45)
[2016-09-14] MEDS ORDERED: CLONIDINE 0.1MG TABLET PO PRN (15:45)
[2016-09-14] MEDS ORDERED: ONDANSETRON HCL 4MG/2ML VIAL IV PRN (15:45)
[2016-09-14] MEDS ORDERED: DIPHENHYDRAMINE 50MG/ML VIAL IV PRN (15:45)
[2016-09-14 18:57] VITALS: BP 134/82
[2016-09-14 20:00] VITALS: BP 136/88
[2016-09-14 20:30] VITALS: BP 136/88
[2016-09-14] MEDS ORDERED: DEXTROSE 50% WATER 50ML SYRINGE IV PRN (22:15)
[2016-09-14 22:46] VITALS: BP 139/90
[2016-09-14] MEDS: MORPHINE SULFATE 2 MG/ML CPJ (NOT FOR IM USE) IV PRN (22:56)
[2016-09-15] VITALS: BP 143/82
[2016-09-15] MEDS: IPRATROPIUM/ALBUTEROL 0.5-3(2.5)MG/3ML NEB INH SCH ×6 (03:39→21:38)
[2016-09-15 04:00] VITALS: BP 139/92
[2016-09-15] MEDS: BLOOD SUGAR DIAGNOSTIC STRIP TEST SCH ×4 (06:02→21:15)
[2016-09-15] MEDS: INSULIN LISPRO 100 UNITS/ML SUBCUT SCH ×4 (06:14→21:00)
[2016-09-15 08:00] VITALS: BP 132/98
[2016-09-15 08:07] LABS: BASOPHILS % 0.6 % (0.0-2.0); EOSINOPHILS % 1.6 % (0.0-5.0); HEMATOCRIT. 32.9 % (42.0-52.0); HEMOGLOBIN. 10.5 g/dL (14.0-18.0); LYMPHOCYTES % 9.7 % (20.0-50.0); MEAN CORPUSCULAR HEMOGLOBIN 26.1 pg (28.0-32.0); MEAN CORPUSCULAR VOLUME 81.8 fL (80.0-94.0); MEAN PLATELET VOLUME 8.2 fl (7.4-10.4); MONOCYTES % 6.3 % (2.0-8.0); NEUTROPHILS % 81.8 % (40.0-76.0); PLATELET 166 x1000/uL (130-400); RED BLOOD CELL COUNT 4.02 mill/uL (4.7-6.1); RED CELL DISTRIBUTION WIDTH 16.3 % (11.6-14.6)
[2016-09-15 08:24] LABS: CARBON DIOXIDE 27 mEq/L (21-32); CHLORIDE 104 mEq/L (98-107); LDL CHOLESTEROL 57 mg/dL (5-100)
[2016-09-15 08:27] LABS: HDL CHOLESTEROL 50 mg/dL (40-59); TROPONIN I 0.13 ng/mL (0.00-0.04)
[2016-09-15] MEDS: MORPHINE SULFATE 2 MG/ML CPJ (NOT FOR IM USE) IV PRN (09:33)
[2016-09-15] MEDS: ASPIRIN 81MG EC TABLET PO SCH (09:34)
[2016-09-15] MEDS: AMLODIPINE 2.5MG TABLET PO SCH (09:34)
[2016-09-15] MEDS: LOSARTAN POTASSIUM 25 MG TABLET PO SCH (09:34)
[2016-09-15] MEDS: METOPROLOL TARTRATE 25MG TABLET PO SCH ×2 (09:34→20:44)
[2016-09-15] MEDS: NORTRIPTYLINE HCL 25MG CAPSULE PO SCH (09:34)
[2016-09-15] MEDS ORDERED: DOCUSATE SODIUM 100MG CAPSULE PO PRN (11:30)
[2016-09-15 12:00] VITALS: BP 121/88
[2016-09-15 16:00] VITALS: BP 139/82
[2016-09-15 20:00] VITALS: BP 127/90
[2016-09-15] MEDS: ATORVASTATIN CALCIUM 10MG TABLET PO SCH (20:44)
[2016-09-16] VITALS: BP 132/82
[2016-09-16] MEDS: IPRATROPIUM/ALBUTEROL 0.5-3(2.5)MG/3ML NEB INH SCH ×6 (01:01→21:20)
[2016-09-16 04:00] VITALS: BP 118/79
[2016-09-16] MEDS: INSULIN LISPRO 100 UNITS/ML SUBCUT SCH ×4 (06:49→21:26)
[2016-09-16] MEDS: BLOOD SUGAR DIAGNOSTIC STRIP TEST SCH ×4 (06:49→20:43)
[2016-09-16 08:00] VITALS: BP 133/87
[2016-09-16] MEDS: NORTRIPTYLINE HCL 25MG CAPSULE PO SCH (08:46)
[2016-09-16] MEDS: ASPIRIN 81MG EC TABLET PO SCH (08:46)
[2016-09-16] MEDS: AMLODIPINE 2.5MG TABLET PO SCH (08:47)
[2016-09-16] MEDS: LOSARTAN POTASSIUM 25 MG TABLET PO SCH (08:47)
[2016-09-16] MEDS: METOPROLOL TARTRATE 25MG TABLET PO SCH (08:47)
[2016-09-16 12:00] VITALS: BP 135/91
[2016-09-16] MEDS: FUROSEMIDE 40MG/4ML VIAL IVP SCH ×2 (12:09→17:26)
[2016-09-16] MEDS: POTASSIUM CHLORIDE 20MEQ TABLET SR PO SCH (12:23)
[2016-09-16] MEDS: HYDROCODONE/ACETAMINOPHEN 5/325MG TABLET PO PRN (12:24)
[2016-09-16] MEDS: CARVEDILOL 3.125 MG TABLET PO SCH ×2 (12:24→20:43)
[2016-09-16] MEDS: METHYLPREDNISOLONE SOD SUCC 40 MG/ML VIAL IV SCH ×2 (15:16→21:25)
[2016-09-16] MEDS: BUDESONIDE 0.5MG/2ML NEB HHN SCH ×2 (15:53→21:20)
[2016-09-16 16:00] VITALS: BP 108/81
[2016-09-16 20:00] VITALS: BP 126/73
[2016-09-16] MEDS: ATORVASTATIN CALCIUM 10MG TABLET PO SCH (20:43)
[2016-09-17] MEDS: IPRATROPIUM/ALBUTEROL 0.5-3(2.5)MG/3ML NEB INH SCH ×6 (04:00→21:06)
[2016-09-17] MEDS: METHYLPREDNISOLONE SOD SUCC 40 MG/ML VIAL IV SCH ×4 (06:00→23:06)
[2016-09-17] MEDS: BLOOD SUGAR DIAGNOSTIC STRIP TEST SCH ×4 (06:33→21:00)
[2016-09-17 06:49] LABS: HEMATOCRIT. 30.5 % (42.0-52.0); MEAN CORPUSCULAR HEMOGLOBIN 27.1 pg (28.0-32.0); MEAN CORPUSCULAR VOLUME 82.9 fL (80.0-94.0); MEAN PLATELET VOLUME 8.6 fl (7.4-10.4); PLATELET 161 x1000/uL (130-400); RED BLOOD CELL COUNT 3.68 mill/uL (4.7-6.1); RED CELL DISTRIBUTION WIDTH 16.4 % (11.6-14.6)
[2016-09-17 06:56] LABS: CARBON DIOXIDE 30 mEq/L (21-32); CHLORIDE 102 mEq/L (98-107)
[2016-09-17] MEDS: BUDESONIDE 0.5MG/2ML NEB HHN SCH (07:42)
[2016-09-17 08:00] VITALS: BP 119/96
[2016-09-17] MEDS: LOSARTAN POTASSIUM 25 MG TABLET PO SCH ×2 (09:21→21:00)
[2016-09-17] MEDS: NORTRIPTYLINE HCL 25MG CAPSULE PO SCH (09:22)
[2016-09-17] MEDS: POTASSIUM CHLORIDE 20MEQ TABLET SR PO SCH (09:22)
[2016-09-17] MEDS: ASPIRIN 81MG EC TABLET PO SCH (09:22)
[2016-09-17] MEDS: CARVEDILOL 3.125 MG TABLET PO SCH ×3 (09:22→23:06)
[2016-09-17] MEDS: AMLODIPINE 2.5MG TABLET PO SCH (09:23)
[2016-09-17] MEDS: HYDROCODONE/ACETAMINOPHEN 5/325MG TABLET PO PRN (09:24)
[2016-09-17] MEDS: INSULIN LISPRO 100 UNITS/ML SUBCUT SCH ×4 (09:25→21:00)
[2016-09-17] MEDS: FUROSEMIDE 40MG/4ML VIAL IVP SCH (09:25)
[2016-09-17 11:31] LABS: PLATELET ESTIMATE NORMAL
[2016-09-17 12:00] VITALS: BP 128/84
[2016-09-17] MEDS ORDERED: FUROSEMIDE 40MG/4ML VIAL IVP NR (13:10)
[2016-09-17 16:00] VITALS: BP 129/93
[2016-09-17 16:26] LABS: HEMATOCRIT. 30.5 % (42.0-52.0); MEAN CORPUSCULAR HEMOGLOBIN 27.3 pg (28.0-32.0); MEAN CORPUSCULAR VOLUME 82.8 fL (80.0-94.0); RED BLOOD CELL COUNT 3.68 mill/uL (4.7-6.1); RED CELL DISTRIBUTION WIDTH 16.2 % (11.6-14.6)
[2016-09-17 16:46] LABS: CARBON DIOXIDE 29 mEq/L (21-32); CHLORIDE 101 mEq/L (98-107)
[2016-09-17 17:07] LABS: MEAN PLATELET VOLUME 8.7 fl (7.4-10.4); PLATELET 156 x1000/uL (130-400)
[2016-09-17 17:09] LABS: PLATELET ESTIMATE NORMAL
[2016-09-17] MEDS: FUROSEMIDE 100MG/10ML VIAL IVP SCH (17:49)
[2016-09-17 19:58] VITALS: BP 117/71
[2016-09-17] MEDS: ATORVASTATIN CALCIUM 10MG TABLET PO SCH ×2 (21:00→23:10)
[2016-09-18] VITALS: BP 122/81
[2016-09-18] MEDS: IPRATROPIUM/ALBUTEROL 0.5-3(2.5)MG/3ML NEB INH SCH ×7 (00:50→23:34)
[2016-09-18] MEDS: BUDESONIDE 0.5MG/2ML NEB HHN SCH ×3 (00:54→21:06)
[2016-09-18 04:00] VITALS: BP 109/69
[2016-09-18] MEDS: METHYLPREDNISOLONE SOD SUCC 40 MG/ML VIAL IV SCH ×2 (06:14→13:42)
[2016-09-18] MEDS: FUROSEMIDE 100MG/10ML VIAL IVP SCH ×2 (06:14→18:01)
[2016-09-18 06:27] LABS: HEMATOCRIT. 30.2 % (42.0-52.0); HEMOGLOBIN. 9.6 g/dL (14.0-18.0); MEAN CORPUSCULAR HEMOGLOBIN 26.6 pg (28.0-32.0); MEAN CORPUSCULAR VOLUME 83.1 fL (80.0-94.0); MEAN PLATELET VOLUME 8.6 fl (7.4-10.4); PLATELET 178 x1000/uL (130-400); RED BLOOD CELL COUNT 3.63 mill/uL (4.7-6.1); RED CELL DISTRIBUTION WIDTH 16.2 % (11.6-14.6)
[2016-09-18] MEDS: BLOOD SUGAR DIAGNOSTIC STRIP TEST SCH ×4 (06:38→20:37)
[2016-09-18] MEDS: INSULIN LISPRO 100 UNITS/ML SUBCUT SCH ×4 (06:43→20:46)
[2016-09-18 07:04] LABS: CARBON DIOXIDE 27 mEq/L (21-32); CHLORIDE 102 mEq/L (98-107); TROPONIN I 0.09 ng/mL (0.00-0.04)
[2016-09-18 08:00] VITALS: BP 123/81
[2016-09-18 08:58] LABS: TOTAL IRON BINDING CAPACITY 284 ug/dL (250-450)
[2016-09-18] MEDS: POTASSIUM CHLORIDE 20MEQ TABLET SR PO SCH (09:00)
[2016-09-18] MEDS: ASPIRIN 81MG EC TABLET PO SCH (09:23)
[2016-09-18] MEDS: NORTRIPTYLINE HCL 25MG CAPSULE PO SCH (09:23)
[2016-09-18] MEDS: AMLODIPINE 2.5MG TABLET PO SCH (09:24)
[2016-09-18] MEDS: CARVEDILOL 3.125 MG TABLET PO SCH ×2 (09:24→20:45)
[2016-09-18] MEDS: LOSARTAN POTASSIUM 25 MG TABLET PO SCH ×2 (09:24→20:45)
[2016-09-18 12:00] VITALS: BP 126/79
[2016-09-18 13:21] LABS: PLATELET ESTIMATE NORMAL
[2016-09-18] MEDS: ISOSORB DINIT/HYDRALAZINE HCL 20/37.5MG TABLET PO SCH ×2 (13:42→18:02)
[2016-09-18] MEDS: SPIRONOLACTONE 25MG TABLET PO SCH (13:42)
[2016-09-18] MEDS ORDERED: MAGNESIUM CITRATE 300ML SOLUTION PO SCH (14:00)
[2016-09-18 16:00] VITALS: BP 119/77
[2016-09-18 20:00] VITALS: BP 129/89
[2016-09-18] MEDS: ATORVASTATIN CALCIUM 10MG TABLET PO SCH (20:45)
[2016-09-19] VITALS: BP 119/75
[2016-09-19] MEDS: IPRATROPIUM/ALBUTEROL 0.5-3(2.5)MG/3ML NEB INH SCH ×6 (03:15→23:56)
[2016-09-19 04:00] VITALS: BP 123/78
[2016-09-19] MEDS: BLOOD SUGAR DIAGNOSTIC STRIP TEST SCH ×4 (06:17→20:51)
[2016-09-19 06:20] LABS: HEMATOCRIT. 29.2 % (42.0-52.0); HEMOGLOBIN. 9.7 g/dL (14.0-18.0); MEAN CORPUSCULAR HEMOGLOBIN 27.9 pg (28.0-32.0); MEAN CORPUSCULAR VOLUME 84.4 fL (80.0-94.0); MEAN PLATELET VOLUME 8.4 fl (7.4-10.4); PLATELET 194 x1000/uL (130-400); RED BLOOD CELL COUNT 3.46 mill/uL (4.7-6.1); RED CELL DISTRIBUTION WIDTH 16.3 % (11.6-14.6)
[2016-09-19] MEDS: FUROSEMIDE 100MG/10ML VIAL IVP SCH ×2 (06:24→18:29)
[2016-09-19] MEDS: INSULIN LISPRO 100 UNITS/ML SUBCUT SCH ×4 (06:25→20:57)
[2016-09-19 07:48] LABS: CHLORIDE 102 mEq/L (98-107)
[2016-09-19 08:00] VITALS: BP 124/81
[2016-09-19 08:12] LABS: CARBON DIOXIDE 28 mEq/L (21-32)
[2016-09-19] MEDS: BUDESONIDE 0.5MG/2ML NEB HHN SCH (08:55)
[2016-09-19] MEDS: CARVEDILOL 3.125 MG TABLET PO SCH ×2 (09:19→20:56)
[2016-09-19] MEDS: NORTRIPTYLINE HCL 25MG CAPSULE PO SCH (09:20)
[2016-09-19] MEDS: LOSARTAN POTASSIUM 25 MG TABLET PO SCH ×2 (09:20→20:56)
[2016-09-19] MEDS: ISOSORB DINIT/HYDRALAZINE HCL 20/37.5MG TABLET PO SCH ×3 (09:20→18:29)
[2016-09-19] MEDS: PREDNISONE 20MG TABLET PO SCH ×2 (09:20→18:28)
[2016-09-19] MEDS: POTASSIUM CHLORIDE 20MEQ TABLET SR PO SCH (09:21)
[2016-09-19] MEDS: SPIRONOLACTONE 25MG TABLET PO SCH (09:21)
[2016-09-19] MEDS: AMLODIPINE 2.5MG TABLET PO SCH (09:21)
[2016-09-19] MEDS: ASPIRIN 81MG EC TABLET PO SCH (09:21)
[2016-09-19 12:00] VITALS: BP 131/79
[2016-09-19 12:07] LABS: PLATELET ESTIMATE NORMAL
[2016-09-19 16:00] VITALS: BP 111/69
[2016-09-19] MEDS ORDERED: MAGNESIUM CITRATE 300ML SOLUTION PO NR (18:00)
[2016-09-19 20:00] VITALS: BP 120/80
[2016-09-19] MEDS: ATORVASTATIN CALCIUM 10MG TABLET PO SCH (20:55)
[2016-09-20] VITALS: BP 132/87
[2016-09-20 04:00] VITALS: BP 126/83
[2016-09-20] MEDS: IPRATROPIUM/ALBUTEROL 0.5-3(2.5)MG/3ML NEB INH SCH ×2 (04:43→09:25)
[2016-09-20] MEDS: BLOOD SUGAR DIAGNOSTIC STRIP TEST SCH ×2 (06:23→11:56)
[2016-09-20] MEDS: FUROSEMIDE 100MG/10ML VIAL IVP SCH (06:24)
[2016-09-20 06:29] LABS: HEMATOCRIT. 30.9 % (42.0-52.0); HEMOGLOBIN. 10.1 g/dL (14.0-18.0); MEAN CORPUSCULAR HEMOGLOBIN 27.4 pg (28.0-32.0); MEAN CORPUSCULAR VOLUME 83.7 fL (80.0-94.0); MEAN PLATELET VOLUME 8.6 fl (7.4-10.4); PLATELET 195 x1000/uL (130-400); RED BLOOD CELL COUNT 3.69 mill/uL (4.7-6.1)
[2016-09-20] MEDS: INSULIN LISPRO 100 UNITS/ML SUBCUT SCH ×2 (06:31→11:56)
[2016-09-20 06:36] LABS: CHLORIDE 97 mEq/L (98-107)
[2016-09-20 06:50] LABS: CARBON DIOXIDE 33 mEq/L (21-32)
[2016-09-20 08:00] VITALS: BP 145/95
[2016-09-20] MEDS: ISOSORB DINIT/HYDRALAZINE HCL 20/37.5MG TABLET PO SCH (08:22)
[2016-09-20] MEDS: NORTRIPTYLINE HCL 25MG CAPSULE PO SCH (08:22)
[2016-09-20] MEDS: CARVEDILOL 3.125 MG TABLET PO SCH (08:22)
[2016-09-20] MEDS: LOSARTAN POTASSIUM 25 MG TABLET PO SCH (08:23)
[2016-09-20] MEDS: SPIRONOLACTONE 25MG TABLET PO SCH (08:23)
[2016-09-20] MEDS: ASPIRIN 81MG EC TABLET PO SCH (08:23)
[2016-09-20] MEDS: POTASSIUM CHLORIDE 20MEQ TABLET SR PO SCH (08:23)
[2016-09-20] MEDS: AMLODIPINE 2.5MG TABLET PO SCH (08:23)
[2016-09-20] MEDS ORDERED: PREDNISONE 20MG TABLET PO SCH (09:00)
[2016-09-20 11:16] VITALS: BP 145/95
[2016-09-20 18:19] LABS: PLATELET ESTIMATE NORMAL
== END 2016-09-20 12:00 | disposition hospice, home (50) | DRG 291 ==
LOC: ER 13:14 → 8WST 13:19 → EDBEDREQ 16:05 → ENRESERV 16:51 → 8WST 18:43
PROVIDERS: ADMIT Internal Medicine; ATTEND Internal Medicine
DX: I11.0 Hypertensive heart disease with heart failure (principal); J96.20 Acute and chronic respiratory failure, unspecified whether with hypoxia or hypercapnia; J18.9 Pneumonia, unspecified organism; J44.1 Chronic obstructive pulmonary disease with (acute) exacerbation; I69.351 Hemiplegia and hemiparesis following cerebral infarction affecting right dominant side; K92.2 Gastrointestinal hemorrhage, unspecified; J44.0 Chronic obstructive pulmonary disease with (acute) lower respiratory infection; I50.43 Acute on chronic combined systolic (congestive) and diastolic (congestive) heart failure; I42.9 Cardiomyopathy, unspecified; K74.60 Unspecified cirrhosis of liver; D69.6 Thrombocytopenia, unspecified; B19.20 Unspecified viral hepatitis C without hepatic coma; D63.8 Anemia in other chronic diseases classified elsewhere; D72.829 Elevated white blood cell count, unspecified; E11.621 Type 2 diabetes mellitus with foot ulcer; F17.210 Nicotine dependence, cigarettes, uncomplicated; L97.529 Non-pressure chronic ulcer of other part of left foot with unspecified severity; I27.2 Other secondary pulmonary hypertension; T38.0X5A Adverse effect of glucocorticoids and synthetic analogues, initial encounter; Z91.19 Patient's noncompliance with other medical treatment and regimen; Z79.4 Long term (current) use of insulin; Z79.899 Other long term (current) drug therapy; Z95.810 Presence of automatic (implantable) cardiac defibrillator; Z99.81 Dependence on supplemental oxygen
CPT/HCPCS: 36415; 71010; 80048; 80053; 80061; 80305; 82270; 82728; 82962; 83540; 83550; 83605; 83690; 83735; 83880; 84484; 85025; 85379; 85610; 85730; 87040; 87086; 93005; 94640; 96374; 96375; 97162; 97166; 99285; C1893; G0482; J1815; J1940; J2270; J2405; J2920; J7512; J7620; J7626